=== PATIENT | female | born 1985 ===

== ENCOUNTER 2016-10-06 11:39 | Emergency (ER) | payer OTHER ==
[2016-10-06 11:39] VITALS: BMI 37.8
[2016-10-06 11:47] VITALS: TEMP 98.8
--- NOTE | 2016-10-06 11:57 | C.PDOC ---
History Of Present Illness 31 yo female w/PMHx of chronic lower back pain, obesity, come in for evaluation of lower back pain exacerbation for past 2-3 weeks. Pt reports, pain is localized, non-radiating, constant now, aching, worse with movement and in AM. Pt admits, was seen by PMD who performed blood work, xray of L-spine and no acute abnormalities noted. Pt sts, takes Naproxyn now without relieve in pain. Otherwise, pt denies fever, chills, recent illness, abd. pain, N/V, UTI sx, vaginal irritation or discharge, denies weakness, sensory or vascular deficits to B/L LEs. Ambulate to ED, not in any apparent distress. Time Seen by Provider: 10/06/16 11:48 Chief Complaint (Nursing): Back Pain History Per: Patient Onset/Duration Of Symptoms: Gradual Past Medical History Reviewed: Historical Data, Nursing Documentation, Vital Signs Vital Signs: Last Vital Signs Temp 98.8 F 10/06/16 11:43 Pulse 82 10/06/16 11:43 Resp 20 10/06/16 11:43 BP 119/77 10/06/16 11:43 Pulse Ox 99 10/06/16 12:10 - Medical History PMH: Diabetes, HTN, Chronic Pain (lower back pain) Other PMH: Obese Surgical History: No Surg Hx Family History: States: Hypertension - Social History Hx Tobacco Use: No Hx Alcohol Use: No Hx Substance Use: No - Immunization History Hx Tetanus Toxoid Vaccination: No Hx Influenza Vaccination: No Hx Pneumococcal Vaccination: No Review Of Systems Except As Marked, All Systems Reviewed And Found Negative. Constitutional: Negative for: Fever, Chills ENT: Negative for: Throat Pain Cardiovascular: Negative for: Chest Pain Genitourinary: Negative for: Dysuria, Frequency, Incontinence Musculoskeletal: Positive for: Back Pain Skin: Negative for: Rash, Bruising Neurological: Negative for: Weakness, Numbness Physical Exam - Physical Exam Appears: Well, Non-toxic, No Acute Distress Skin: Normal Color, Warm, Dry, No Rash Eye(s): bilateral: PERRL Oral Mucosa: Moist Throat: No Erythema, No Exudate Neck: Supple Cardiovascular: Rhythm Regular Respiratory: No Decreased Breath Sounds, No Accessory Muscle Use, No Stridor, No Wheezing Gastrointestinal/Abdominal: Soft, No Tenderness, No Distention, No Guarding Back: No CVA Tenderness, No Vertebral Tenderness, Paraspinal Tenderness ( diffuse lumbar paraspinal tenderness. NO kidline tenderness.), No Straight Leg Raising Extremity: No Pedal Edema, No Deformity Neurological/Psych: Oriented x3, Normal Speech, Normal Motor, Normal Sensation, Normal Reflexes ED Course And Treatment O2 Sat by Pulse Oximetry: 99 Pulse Ox Interpretation: Normal Progress Note: On re-evaluation, pt is afebrile, hemodynamicaly stable. Non- toxic. Ambulatory in ED with stable gait. ENT: no acute findings. ABd: benign. Back: (-) CVA tenderness. Neurologicaly intact. UA results review (-) . Pt has clinical findings c/w lower back pain, chronic with acute exacerbation. Pt advised and ref. to f/u with PMD in 2-3 days for re-eval and further pain control. Disposition Counseled Patient/Family Regarding: Studies Performed, Diagnosis, Need For Followup, Rx Given - Disposition Referrals: Clinic,Med Surg [Primary Care Provider] - Disposition: HOME/ ROUTINE Disposition Time: 12:51 Condition: STABLE Additional Instructions: AVOID HEAVY LIFTING, BENDING FORWARDS, ANY PHYSICAL ACTIVITY FOR 2-3 WEEKS TAKE MEDICATION PRESCRIBED FOLLOW UP WITH PMD FOR FURTHER EVALUATION POSSIBLE MRI OF L-SPINE AND PHYSICAL THERAPY. RETURN IF ANY NEW CHANGES. Prescriptions: Methocarbamol [Robaxin] 500 mg PO TID #14 tab traMADol [Ultram] 50 mg PO TID #7 tab Instructions: Back Pain (ED) - Clinical Impression Clinical Impression: Low back pain
[2016-10-06 12:43] LABS: RBC URINE 2 /hpf (0-3); URINE BACTERIA RARE (<OCC); URINE BILIRUBIN NEGATIVE (NEGATIVE); URINE BLOOD NEGATIVE (NEGATIVE); URINE COLOR Yellow (YELLOW); URINE GLUCOSE (UA) NORMAL (Normal); URINE KETONE NEGATIVE (NEGATIVE); URINE LEUKOCYTE ESTERASE NEG Leu/uL (Negative); URINE PROTEIN NEGATIVE (NEGATIVE); URINE UROBILINOGEN NORMAL mg/dL (0.2-1.0); WBC URINE 1 /hpf (0-5)
[2016-10-06 13:06] VITALS: BP 124/75; PULSE 75; RESP 18; O2SAT 98
== END 2016-10-06 13:08 | disposition home or self-care (01) ==
LOC: C.ER 11:39 → SUPCPDRO 11:39 → C.ER 13:08
DX: M54.5 Low back pain (principal)